=== PATIENT | male | born 1955 | race African-American/Black ===

== ENCOUNTER 2018-03-20 16:41 | Emergency (ER) | payer OTHER ==
[~2018-03-20] VITALS: Ht 185.4 cm; Wt 107.7 kg
[2018-03-20 18:17] VITALS: BP 145/88
== END 2018-03-20 19:18 | disposition home or self-care (01) ==
LOC: EDUNIT# 16:41 → EMS 16:42
DX: R60.0 Localized edema (principal); M79.89 Other specified soft tissue disorders; G89.29 Other chronic pain; S91.302D Unspecified open wound, left foot, subsequent encounter; S91.301D Unspecified open wound, right foot, subsequent encounter; Z88.8 Allergy status to other drugs, medicaments and biological substances; X58.XXXD Exposure to other specified factors, subsequent encounter
CPT/HCPCS: 99283

== ENCOUNTER → 2018-03-25 | Outpatient (CLI) | payer OTHER ==
[~2018-03-25] VITALS: Ht 185.4 cm; Wt 103.3 kg
[~2018-03-25] MED LIST: CHLORHEXIDINE GLUCONATE 4% 118 ML TOPICAL LIQUID TP ONE; HYDROGEN PEROXIDE 473 ML SOLUTION TP ONE; LIDOCAINE HCL 4% 50 ML SOLUTION TP ONE; SODIUM HYPOCHLORITE 0.25% [HALF STRENGTH] 473 ML SOLUTION TP ONE
[2018-03-25 13:54] VITALS: BP 156/93
== END | disposition home or self-care (01) ==
LOC: EDUNIT# 11:00 → HBOWC 11:24
PROVIDERS: ATTEND Emergency Medicine
DX: S81.801D Unspecified open wound, right lower leg, subsequent encounter (principal); S81.802D Unspecified open wound, left lower leg, subsequent encounter; G89.29 Other chronic pain; I87.8 Other specified disorders of veins; F17.210 Nicotine dependence, cigarettes, uncomplicated; Z59.0 Homelessness; X58.XXXD Exposure to other specified factors, subsequent encounter
CPT/HCPCS: 11042; 11045

== ENCOUNTER → 2018-03-28 | Outpatient (CLI) | payer OTHER ==
[2018-03-28 11:07] VITALS: BP 146/88
== END | disposition home or self-care (01) ==
LOC: HBOWC 09:41
PROVIDERS: ATTEND Podiatrist
DX: S81.801D Unspecified open wound, right lower leg, subsequent encounter (principal); S81.802D Unspecified open wound, left lower leg, subsequent encounter; G89.29 Other chronic pain; F17.210 Nicotine dependence, cigarettes, uncomplicated; X58.XXXD Exposure to other specified factors, subsequent encounter

== ENCOUNTER 2018-04-01 12:11 | Emergency (ER) | payer OTHER ==
[~2018-04-01] VITALS: Ht 165.1 cm; Wt 109.0 kg
[2018-04-01 17:06] LABS: BASOPHILS % (AUTO) 0.9 % (0.0-2.0); HEMATOCRIT 36.6 % (41-53); HEMOGLOBIN 12.4 g/dL (13.5-17.5); LYMPHOCYTES # (AUTO) 1.3 K/uL (1.0-4.8); LYMPHOCYTES % (AUTO) 20.9 % (22.0-44.0); MEAN CORPUSCULAR HEMOGLOBIN 27.1 pg (26.0-34.0); MEAN CORPUSCULAR HGB CONC 33.7 G/dL (31.0-37.0); MEAN CORPUSCULAR VOLUME 80 fL (80-100); MONOCYTES # (AUTO) 0.5 K/uL (0.1-1.0); MONOCYTES % (AUTO) 7.6 % (2.0-9.0); NEUTROPHILS # (AUTO) 3.9 K/uL (1.8-7.7); NEUTROPHILS % (AUTO) 63.6 % (40.0-70.0); PLATELET COUNT (AUTO) 416 K/uL (150-450); RED BLOOD CELL COUNT(AUTO) 4.57 MIL/uL (4.50-5.90); RED CELL DISTRIBUTION WIDTH 14.7 % (11.5-14.5)
[2018-04-01 17:23] LABS: ANION GAP 5 mmol/L (8-16); CALCIUM, TOTAL 8.2 mg/dL (8.8-10.5); CARBON DIOXIDE 30 mmol/L (22-29); CHLORIDE 105 mmol/L (98-107); CREATININE 1.24 mg/dL (0.60-1.30); GLOMERULAR FILTR. RATE CALC > 60 mL/min (>60); GLUCOSE,RANDOM 128 mg/dL (70-110); POTASSIUM 3.8 mmol/L (3.5-5.1); SODIUM SERUM 140 mmol/L (136-145); UREA NITROGEN, BLOOD 15 mg/dL (7-18)
[2018-04-01 17:28] LABS: LACTIC ACID 1.8 mmol/L (0.4-2.0)
[2018-04-01 17:34] LABS: ALANINE AMINOTRANSFERASE 18 U/L (12-78); ALBUMIN 2.4 g/dL (3.4-5.0); ALKALINE PHOSPHATASE 101 U/L (46-116); ASPARTATE AMINOTRANSFERASE 18 U/L (15-37); BILIRUBIN,TOTAL 0.4 mg/dL (0.1-1.0); TOTAL PROTEIN, SERUM 7.7 g/dL (6.4-8.2)
[2018-04-01 19:51] VITALS: BP 139/88
== END 2018-04-01 19:53 | disposition home or self-care (01) ==
LOC: EMS 12:12
DX: Z48.00 Encounter for change or removal of nonsurgical wound dressing (principal)
CPT/HCPCS: 83605; 99284

== ENCOUNTER 2018-04-02 12:15 | Inpatient (IN) | payer OTHER ==
[~2018-04-02] VITALS: Ht 185.4 cm; Wt 93.3 kg
[2018-04-02] MEDS ORDERED: CeFAZolin 1 GM/DEXTROSE 50 ML IV ONE (12:30)
[2018-04-02] MEDS ORDERED: GENTAMICIN 120 MG/NACL ISO-OSM 100 ML IV ONE (12:30)
[2018-04-02] MEDS ORDERED: ONDANSETRON HCL 4 MG/2 ML VIAL IVP PRN ×2 (13:30→22:30)
[2018-04-02] MEDS ORDERED: HYDROCODONE/ACETAMINOPHEN 5-325 MG TABLET PO PRN (13:30)
[2018-04-02] MEDS ORDERED: ACETAMINOPHEN 325 MG TABLET PO PRN ×2 (13:30→22:30)
[2018-04-02] MEDS ORDERED: MORPHINE SULFATE 4 MG/ML SYRINGE IVP PRN (13:30)
[2018-04-02 13:43] LABS: BASOPHILS % (AUTO) 0.5 % (0.0-2.0); EOSINOPHILS % (AUTO) 5.2 % (1.0-6.0); HEMATOCRIT 36.5 % (41-53); HEMOGLOBIN 12.3 g/dL (13.5-17.5); LYMPHOCYTES # (AUTO) 1.2 K/uL (1.0-4.8); LYMPHOCYTES % (AUTO) 14.7 % (22.0-44.0); MEAN CORPUSCULAR HEMOGLOBIN 27.2 pg (26.0-34.0); MEAN CORPUSCULAR HGB CONC 33.8 G/dL (31.0-37.0); MEAN CORPUSCULAR VOLUME 80 fL (80-100); MONOCYTES # (AUTO) 0.6 K/uL (0.1-1.0); MONOCYTES % (AUTO) 7.6 % (2.0-9.0); PLATELET COUNT (AUTO) 407 K/uL (150-450); RED BLOOD CELL COUNT(AUTO) 4.54 MIL/uL (4.50-5.90); RED CELL DISTRIBUTION WIDTH 14.6 % (11.5-14.5)
[2018-04-02 13:52] LABS: ANION GAP 4 mmol/L (8-16); CARBON DIOXIDE 29 mmol/L (22-29); CHLORIDE 104 mmol/L (98-107); CREATININE 1.13 mg/dL (0.60-1.30); GLOMERULAR FILTR. RATE CALC > 60 mL/min (>60); GLUCOSE,RANDOM 91 mg/dL (70-110); SODIUM SERUM 137 mmol/L (136-145); UREA NITROGEN, BLOOD 15 mg/dL (7-18)
[2018-04-02 14:00] LABS: ALANINE AMINOTRANSFERASE 18 U/L (12-78); ALBUMIN 2.4 g/dL (3.4-5.0); ALKALINE PHOSPHATASE 98 U/L (46-116); ASPARTATE AMINOTRANSFERASE 20 U/L (15-37); BILIRUBIN,TOTAL 0.2 mg/dL (0.1-1.0); TOTAL PROTEIN, SERUM 7.7 g/dL (6.4-8.2)
[2018-04-02 15:24] VITALS: BP 155/101
[2018-04-02 19:31] VITALS: BP 126/59
[2018-04-02] MEDS ORDERED: 0.9% SODIUM CHLORIDE 10 ML SYRINGE IVP PRN (22:30)
[2018-04-02] MEDS ORDERED: ZOLPIDEM TARTRATE 5 MG TABLET PO PRN (22:30)
[2018-04-02] MEDS ORDERED: VANCOMYCIN HCL 1.5 GM in DEXTROSE 5%-WATER 250 ML IV ONE (23:30)
[2018-04-02 23:36] VITALS: BP 126/72
[2018-04-02] MEDS: OxyCODONE HCL/ACETAMINOPHEN 5-325 MG TABLET PO PRN (23:57)
[2018-04-03] MEDS ORDERED: HEPARIN SODIUM,PORCINE 5,000 UNITS/ML VIAL SQ SCH
[2018-04-03] MEDS: CefTRIAXone SODIUM 1 GM in DEXTROSE 5%-WATER 10 ML IV SCH ×2 (00:17→23:33)
[2018-04-03] MEDS ORDERED: SODIUM CHLORIDE 0.9% 250 ML IV ONE ×2 (00:54→08:42)
[2018-04-03 04:53] VITALS: BP 142/75
[2018-04-03 07:48] LABS: BASOPHILS % (AUTO) 0.2 % (0.0-2.0); EOSINOPHILS % (AUTO) 4.2 % (1.0-6.0); HEMATOCRIT 38.9 % (41-53); HEMOGLOBIN 12.8 g/dL (13.5-17.5); LYMPHOCYTES # (AUTO) 1.3 K/uL (1.0-4.8); LYMPHOCYTES % (AUTO) 15.1 % (22.0-44.0); MEAN CORPUSCULAR HEMOGLOBIN 26.7 pg (26.0-34.0); MEAN CORPUSCULAR HGB CONC 32.8 G/dL (31.0-37.0); MEAN CORPUSCULAR VOLUME 81 fL (80-100); MONOCYTES # (AUTO) 0.6 K/uL (0.1-1.0); MONOCYTES % (AUTO) 7.2 % (2.0-9.0); NEUTROPHILS # (AUTO) 6.2 K/uL (1.8-7.7); NEUTROPHILS % (AUTO) 73.3 % (40.0-70.0); PLATELET COUNT (AUTO) 417 K/uL (150-450); RED BLOOD CELL COUNT(AUTO) 4.77 MIL/uL (4.50-5.90); RED CELL DISTRIBUTION WIDTH 14.7 % (11.5-14.5)
[2018-04-03 07:53] VITALS: BP 141/65
[2018-04-03] MEDS: VANCOMYCIN HCL 1.25 GM in DEXTROSE 5%-WATER 250 ML IV SCH ×2 (08:00→20:16)
[2018-04-03 08:02] LABS: ANION GAP 3 mmol/L (8-16); CALCIUM, TOTAL 7.9 mg/dL (8.8-10.5); CARBON DIOXIDE 30 mmol/L (22-29); CHLORIDE 103 mmol/L (98-107); CREATININE 1.06 mg/dL (0.60-1.30); GLOMERULAR FILTR. RATE CALC > 60 mL/min (>60); GLUCOSE,RANDOM 87 mg/dL (70-110); POTASSIUM 3.8 mmol/L (3.5-5.1); SODIUM SERUM 136 mmol/L (136-145); UREA NITROGEN, BLOOD 14 mg/dL (7-18)
[2018-04-03] MEDS: DOCUSATE SODIUM 100 MG CAPSULE PO SCH ×2 (09:00→20:16)
[2018-04-03] MEDS: PANTOPRAZOLE SODIUM 40 MG DR TABLET PO SCH (09:00)
[2018-04-03 12:20] VITALS: BP 136/58
[2018-04-03 16:10] VITALS: BP 133/76
[2018-04-03 19:20] VITALS: BP 121/92
[2018-04-03] MEDS: OxyCODONE HCL/ACETAMINOPHEN 5-325 MG TABLET PO PRN (20:22)
[2018-04-03 23:13] VITALS: BP 138/85
[2018-04-04 04:55] VITALS: BP 126/66
[2018-04-04] MEDS: OxyCODONE HCL/ACETAMINOPHEN 5-325 MG TABLET PO PRN ×4 (05:15→22:14)
[2018-04-04 07:14] LABS: ANION GAP 3 mmol/L (8-16); CALCIUM, TOTAL 7.8 mg/dL (8.8-10.5); CARBON DIOXIDE 30 mmol/L (22-29); CHLORIDE 103 mmol/L (98-107); CREATININE 1.11 mg/dL (0.60-1.30); GLOMERULAR FILTR. RATE CALC > 60 mL/min (>60); GLUCOSE,RANDOM 102 mg/dL (70-110); SODIUM SERUM 136 mmol/L (136-145); UREA NITROGEN, BLOOD 14 mg/dL (7-18); VANCOMYCIN,RANDOM 16.7 mcg/mL (25.0-50.0)
[2018-04-04 07:59] VITALS: BP 146/81
[2018-04-04] MEDS: VANCOMYCIN HCL 1.25 GM in DEXTROSE 5%-WATER 250 ML IV SCH ×2 (08:00→22:10)
[2018-04-04] MEDS ORDERED: ZINC OXIDE 20% 30 GM OINTMENT TP SCH (09:00)
[2018-04-04] MEDS: DOCUSATE SODIUM 100 MG CAPSULE PO SCH ×2 (09:39→20:06)
[2018-04-04] MEDS: PANTOPRAZOLE SODIUM 40 MG DR TABLET PO SCH (09:39)
[2018-04-04] MEDS: ACETIC ACID 0.25% 1000 ML IRRIGATION SOLUTION IRRIG SCH (09:39)
[2018-04-04 11:15] VITALS: BP 150/63
[2018-04-04] MEDS ORDERED: INSULIN GLARGINE,HUM.REC.ANLOG 100 UNITS/ML SQ ONE (13:00)
[2018-04-04 16:21] VITALS: BP 134/74
[2018-04-04] MEDS ORDERED: MULTIVITAMINS, THERAPEUTIC TABLET PO ONE (17:15)
[2018-04-04 19:11] VITALS: BP 149/90
[2018-04-04] MEDS: FLUCONAZOLE 200 MG/NACL ISOOSM 100 ML IV SCH (20:06)
[2018-04-04] MEDS ORDERED: INSULIN GLARGINE,HUM.REC.ANLOG 100 UNITS/ML SQ SCH (21:00)
[2018-04-04] MEDS: CefTRIAXone SODIUM 1 GM in DEXTROSE 5%-WATER 10 ML IV SCH (22:16)
[2018-04-04 23:55] VITALS: BP 140/81
[2018-04-05] MEDS: OxyCODONE HCL/ACETAMINOPHEN 5-325 MG TABLET PO PRN ×3 (02:57→19:52)
[2018-04-05 05:48] VITALS: BP 143/81
[2018-04-05 06:36] LABS: ANION GAP 5 mmol/L (8-16); CALCIUM, TOTAL 7.9 mg/dL (8.8-10.5); CARBON DIOXIDE 29 mmol/L (22-29); CHLORIDE 103 mmol/L (98-107); GLOMERULAR FILTR. RATE CALC > 60 mL/min (>60); GLUCOSE,RANDOM 116 mg/dL (70-110); POTASSIUM 3.6 mmol/L (3.5-5.1); SODIUM SERUM 137 mmol/L (136-145); UREA NITROGEN, BLOOD 13 mg/dL (7-18)
[2018-04-05 07:56] VITALS: BP 140/82
[2018-04-05] MEDS: VANCOMYCIN HCL 1.25 GM in DEXTROSE 5%-WATER 250 ML IV SCH ×2 (09:18→19:49)
[2018-04-05] MEDS: PANTOPRAZOLE SODIUM 40 MG DR TABLET PO SCH (09:19)
[2018-04-05] MEDS: DOCUSATE SODIUM 100 MG CAPSULE PO SCH ×2 (09:19→19:53)
[2018-04-05] MEDS: ASCORBIC ACID 500 MG TABLET PO SCH (09:19)
[2018-04-05] MEDS: ZINC SULFATE 220 MG CAPSULE PO SCH (09:19)
[2018-04-05 11:32] VITALS: BP 133/89
[2018-04-05] MEDS: ACETIC ACID 0.25% 1000 ML IRRIGATION SOLUTION IRRIG SCH (12:00)
[2018-04-05 15:54] VITALS: BP 138/86
[2018-04-05 20:00] VITALS: BP 149/86
[2018-04-05] MEDS: FLUCONAZOLE 200 MG/NACL ISOOSM 100 ML IV SCH (22:28)
[2018-04-06] VITALS (7 sets, daily range): BP systolic 126–157; BP diastolic 79–98
[2018-04-06] MEDS: CefTRIAXone SODIUM 1 GM in DEXTROSE 5%-WATER 10 ML IV SCH (00:07)
[2018-04-06] MEDS: OxyCODONE HCL/ACETAMINOPHEN 5-325 MG TABLET PO PRN ×3 (00:13→15:54)
[2018-04-06] MEDS: DOCUSATE SODIUM 100 MG CAPSULE PO SCH ×2 (09:00→20:55)
[2018-04-06] MEDS: VANCOMYCIN HCL 1.25 GM in DEXTROSE 5%-WATER 250 ML IV SCH ×2 (09:20→20:54)
[2018-04-06] MEDS: ZINC SULFATE 220 MG CAPSULE PO SCH (09:20)
[2018-04-06] MEDS: PANTOPRAZOLE SODIUM 40 MG DR TABLET PO SCH (09:20)
[2018-04-06] MEDS: ASCORBIC ACID 500 MG TABLET PO SCH (09:20)
[2018-04-06 10:50] LABS: ANION GAP 2 mmol/L (8-16); CALCIUM, TOTAL 8.2 mg/dL (8.8-10.5); CARBON DIOXIDE 33 mmol/L (22-29); CHLORIDE 101 mmol/L (98-107); CREATININE 1.02 mg/dL (0.60-1.30); GLOMERULAR FILTR. RATE CALC > 60 mL/min (>60); GLUCOSE,RANDOM 87 mg/dL (70-110); POTASSIUM 4.1 mmol/L (3.5-5.1); SODIUM SERUM 136 mmol/L (136-145); UREA NITROGEN, BLOOD 15 mg/dL (7-18)
[2018-04-06] MEDS: ACETIC ACID 0.25% 1000 ML IRRIGATION SOLUTION IRRIG SCH (14:08)
[2018-04-06] MEDS: FLUCONAZOLE 200 MG/NACL ISOOSM 100 ML IV SCH (20:55)
[2018-04-07] MEDS ORDERED: SODIUM CHLORIDE 0.9% 250 ML IV ONE (00:06)
[2018-04-07] MEDS: CefTRIAXone SODIUM 1 GM in DEXTROSE 5%-WATER 10 ML IV SCH ×2 (00:50→22:58)
[2018-04-07] MEDS: OxyCODONE HCL/ACETAMINOPHEN 5-325 MG TABLET PO PRN ×3 (00:53→19:47)
[2018-04-07 04:50] VITALS: BP 125/85
[2018-04-07 07:34] VITALS: BP 130/97
[2018-04-07 07:45] LABS: ANION GAP 6 mmol/L (8-16); CALCIUM, TOTAL 8.2 mg/dL (8.8-10.5); CARBON DIOXIDE 29 mmol/L (22-29); CHLORIDE 103 mmol/L (98-107); CREATININE 1.07 mg/dL (0.60-1.30); GLOMERULAR FILTR. RATE CALC > 60 mL/min (>60); GLUCOSE,RANDOM 100 mg/dL (70-110); POTASSIUM 3.8 mmol/L (3.5-5.1); SODIUM SERUM 138 mmol/L (136-145); UREA NITROGEN, BLOOD 19 mg/dL (7-18)
[2018-04-07] MEDS: ZINC SULFATE 220 MG CAPSULE PO SCH (07:50)
[2018-04-07] MEDS: VANCOMYCIN HCL 1.25 GM in DEXTROSE 5%-WATER 250 ML IV SCH ×2 (07:51→20:11)
[2018-04-07] MEDS: PANTOPRAZOLE SODIUM 40 MG DR TABLET PO SCH (07:51)
[2018-04-07] MEDS: ASCORBIC ACID 500 MG TABLET PO SCH (07:51)
[2018-04-07] MEDS: DOCUSATE SODIUM 100 MG CAPSULE PO SCH ×2 (07:56→19:49)
[2018-04-07 11:33] VITALS: BP 134/77
[2018-04-07] MEDS: ZINC OXIDE 16% PASTE 57 GM TUBE TP SCH (15:03)
[2018-04-07] MEDS: ACETIC ACID 0.25% 1000 ML IRRIGATION SOLUTION IRRIG SCH (15:03)
[2018-04-07 19:49] VITALS: BP 124/64
[2018-04-07] MEDS: FLUCONAZOLE 200 MG/NACL ISOOSM 100 ML IV SCH (23:05)
[2018-04-07 23:30] VITALS: BP 128/68
[2018-04-08] MEDS: OxyCODONE HCL/ACETAMINOPHEN 5-325 MG TABLET PO PRN ×2 (00:17→20:01)
[2018-04-08 04:47] VITALS: BP 142/89
[2018-04-08 06:04] LABS: BASOPHILS % (AUTO) 0.7 % (0.0-2.0); EOSINOPHILS % (AUTO) 4.6 % (1.0-6.0); HEMATOCRIT 38.7 % (41-53); HEMOGLOBIN 13.1 g/dL (13.5-17.5); LYMPHOCYTES # (AUTO) 1.8 K/uL (1.0-4.8); LYMPHOCYTES % (AUTO) 28.5 % (22.0-44.0); MEAN CORPUSCULAR HEMOGLOBIN 27.1 pg (26.0-34.0); MEAN CORPUSCULAR VOLUME 80 fL (80-100); MONOCYTES # (AUTO) 0.4 K/uL (0.1-1.0); MONOCYTES % (AUTO) 5.7 % (2.0-9.0); NEUTROPHILS # (AUTO) 3.8 K/uL (1.8-7.7); NEUTROPHILS % (AUTO) 60.5 % (40.0-70.0); PLATELET COUNT (AUTO) 486 K/uL (150-450); RED BLOOD CELL COUNT(AUTO) 4.86 MIL/uL (4.50-5.90); RED CELL DISTRIBUTION WIDTH 14.3 % (11.5-14.5)
[2018-04-08 06:29] LABS: ALANINE AMINOTRANSFERASE 17 U/L (12-78); ALBUMIN 2.5 g/dL (3.4-5.0); ALKALINE PHOSPHATASE 85 U/L (46-116); ANION GAP 5 mmol/L (8-16); ASPARTATE AMINOTRANSFERASE 15 U/L (15-37); BILIRUBIN,TOTAL 0.1 mg/dL (0.1-1.0); CALCIUM, TOTAL 8.3 mg/dL (8.8-10.5); CARBON DIOXIDE 30 mmol/L (22-29); CHLORIDE 100 mmol/L (98-107); CREATININE 1.07 mg/dL (0.60-1.30); GLOMERULAR FILTR. RATE CALC > 60 mL/min (>60); GLUCOSE,RANDOM 87 mg/dL (70-110); POTASSIUM 3.6 mmol/L (3.5-5.1); SODIUM SERUM 135 mmol/L (136-145); TOTAL PROTEIN, SERUM 7.7 g/dL (6.4-8.2); UREA NITROGEN, BLOOD 20 mg/dL (7-18); VANCOMYCIN,RANDOM 20.2 mcg/mL (25.0-50.0)
[2018-04-08 07:45] VITALS: BP 140/90
[2018-04-08] MEDS: ZINC OXIDE 16% PASTE 57 GM TUBE TP SCH (09:00)
[2018-04-08] MEDS: ACETIC ACID 0.25% 1000 ML IRRIGATION SOLUTION IRRIG SCH (09:00)
[2018-04-08] MEDS ORDERED: SODIUM CHLORIDE 0.9% 250 ML IV ONE (09:34)
[2018-04-08] MEDS: ZINC SULFATE 220 MG CAPSULE PO SCH (09:41)
[2018-04-08] MEDS: DOCUSATE SODIUM 100 MG CAPSULE PO SCH ×2 (09:41→19:56)
[2018-04-08] MEDS: PANTOPRAZOLE SODIUM 40 MG DR TABLET PO SCH (09:41)
[2018-04-08] MEDS: ASCORBIC ACID 500 MG TABLET PO SCH (09:41)
[2018-04-08] MEDS: VANCOMYCIN HCL 1.25 GM in DEXTROSE 5%-WATER 250 ML IV SCH (09:42)
[2018-04-08 11:53] VITALS: BP 143/89
[2018-04-08 16:27] VITALS: BP 144/87
[2018-04-08 19:27] VITALS: BP 137/79
[2018-04-08] MEDS: VANCOMYCIN HCL 1.5 GM in DEXTROSE 5%-WATER 250 ML IV SCH (20:01)
[2018-04-08] MEDS: FLUCONAZOLE 200 MG/NACL ISOOSM 100 ML IV SCH (21:32)
[2018-04-09] VITALS (7 sets, daily range): BP systolic 125–154; BP diastolic 66–106
[2018-04-09] MEDS: CIPROFLOXACIN HCL 500 MG TABLET PO SCH ×3 (00:48→20:01)
[2018-04-09] MEDS: OxyCODONE HCL/ACETAMINOPHEN 5-325 MG TABLET PO PRN ×4 (01:03→20:09)
[2018-04-09 06:48] LABS: ANION GAP 5 mmol/L (8-16); CALCIUM, TOTAL 8.5 mg/dL (8.8-10.5); CARBON DIOXIDE 31 mmol/L (22-29); CHLORIDE 100 mmol/L (98-107); CREATININE 1.11 mg/dL (0.60-1.30); GLOMERULAR FILTR. RATE CALC > 60 mL/min (>60); GLUCOSE,RANDOM 76 mg/dL (70-110); POTASSIUM 3.5 mmol/L (3.5-5.1); SODIUM SERUM 136 mmol/L (136-145); UREA NITROGEN, BLOOD 17 mg/dL (7-18)
[2018-04-09] MEDS: ZINC OXIDE 16% PASTE 57 GM TUBE TP SCH (09:00)
[2018-04-09] MEDS: DOCUSATE SODIUM 100 MG CAPSULE PO SCH ×2 (09:00→20:01)
[2018-04-09] MEDS: ACETIC ACID 0.25% 1000 ML IRRIGATION SOLUTION IRRIG SCH (09:00)
[2018-04-09] MEDS: ASCORBIC ACID 500 MG TABLET PO SCH (09:40)
[2018-04-09] MEDS: PANTOPRAZOLE SODIUM 40 MG DR TABLET PO SCH (09:40)
[2018-04-09] MEDS: ZINC SULFATE 220 MG CAPSULE PO SCH (09:40)
[2018-04-09] MEDS: VANCOMYCIN HCL 1.5 GM in DEXTROSE 5%-WATER 250 ML IV SCH ×2 (09:41→20:01)
[2018-04-10 05:18] VITALS: BP 153/77
[2018-04-10] MEDS: VANCOMYCIN HCL 1.5 GM in DEXTROSE 5%-WATER 250 ML IV SCH ×2 (08:00→09:17)
[2018-04-10 08:56] VITALS: BP 140/75
[2018-04-10] MEDS: ACETIC ACID 0.25% 1000 ML IRRIGATION SOLUTION IRRIG SCH (09:00)
[2018-04-10] MEDS: PANTOPRAZOLE SODIUM 40 MG DR TABLET PO SCH (09:17)
[2018-04-10] MEDS: DOCUSATE SODIUM 100 MG CAPSULE PO SCH (09:17)
[2018-04-10] MEDS: CIPROFLOXACIN HCL 500 MG TABLET PO SCH (09:17)
[2018-04-10] MEDS: ZINC SULFATE 220 MG CAPSULE PO SCH (09:17)
[2018-04-10] MEDS: ZINC OXIDE 16% PASTE 57 GM TUBE TP SCH (09:18)
[2018-04-10] MEDS: ASCORBIC ACID 500 MG TABLET PO SCH (09:18)
[2018-04-10] MEDS: OxyCODONE HCL/ACETAMINOPHEN 5-325 MG TABLET PO PRN (16:13)
== END 2018-04-10 17:15 | disposition left against medical advice (07) | DRG 383 ==
LOC: EMS 12:15 → 6N 12:45
PROVIDERS: ADMIT Hospitalist; ATTEND Hospitalist
DX: L03.115 Cellulitis of right lower limb (principal); L97.819 Non-pressure chronic ulcer of other part of right lower leg with unspecified severity; L97.829 Non-pressure chronic ulcer of other part of left lower leg with unspecified severity; L03.116 Cellulitis of left lower limb; F17.210 Nicotine dependence, cigarettes, uncomplicated; I87.2 Venous insufficiency (chronic) (peripheral); B95.62 Methicillin resistant Staphylococcus aureus infection as the cause of diseases classified elsewhere; Z53.21 Procedure and treatment not carried out due to patient leaving prior to being seen by health care provider; Z59.0 Homelessness; Z88.8 Allergy status to other drugs, medicaments and biological substances; Z86.14 Personal history of Methicillin resistant Staphylococcus aureus infection
CPT/HCPCS: 83735; 87070; 87081; 87205; 93925; 93970; 96365; 96368; 99285; J0690; J0696; J1450; J1580; J1644; J2270; J3370; J7050; J7060

== ENCOUNTER → 2018-04-02 | Outpatient (CLI) | payer OTHER ==
[2018-04-02 14:21] VITALS: BP 156/90
== END | disposition home or self-care (01) ==
LOC: HBOWC 08:59
PROVIDERS: ATTEND Internal Medicine
DX: S81.801D Unspecified open wound, right lower leg, subsequent encounter (principal); S81.802D Unspecified open wound, left lower leg, subsequent encounter; G89.29 Other chronic pain; F17.210 Nicotine dependence, cigarettes, uncomplicated; X58.XXXD Exposure to other specified factors, subsequent encounter
CPT/HCPCS: 11042

== ENCOUNTER → 2018-12-15 | Outpatient (CLI) | payer OTHER ==
[~2018-12-15] VITALS: Ht 188 cm; Wt 105.0 kg
[~2018-12-15] MED LIST changes: +ACET-784 PO; +AMLO-512 PO; +BISA10S PR; -CHLORHEXIDINE GLUCONATE 4% 118 ML TOPICAL LIQUID TP ONE; +GABA-531 PO; -HYDROGEN PEROXIDE 473 ML SOLUTION TP ONE; -LIDOCAINE HCL 4% 50 ML SOLUTION TP ONE; +MINE50OI TP; +PERCT PO; -SODIUM HYPOCHLORITE 0.25% [HALF STRENGTH] 473 ML SOLUTION TP ONE; +UREA198C TP
[2018-12-15 08:10] VITALS: BP 137/80
== END | disposition home or self-care (01) ==
LOC: HBOWC 07:54
PROVIDERS: ATTEND Surgery Plastic and Reconstructive Surgery
DX: S81.802D Unspecified open wound, left lower leg, subsequent encounter (principal); S81.801D Unspecified open wound, right lower leg, subsequent encounter; I89.0 Lymphedema, not elsewhere classified; I87.2 Venous insufficiency (chronic) (peripheral); I10 Essential (primary) hypertension; F17.210 Nicotine dependence, cigarettes, uncomplicated; Z72.89 Other problems related to lifestyle; Z59.0 Homelessness; X58.XXXD Exposure to other specified factors, subsequent encounter

== ENCOUNTER 2019-07-21 22:50 | Inpatient (IN) | payer OTHER ==
[~2019-07-21] VITALS: Ht 185.4 cm; Wt 98.1 kg
[~2019-07-21 22:50] MED LIST changes: -AMLO-512 PO; +AMLO10TA7 PO
[2019-07-22] MEDS ORDERED: CHOL200059 PO (00:13)
[2019-07-22] MEDS ORDERED: CLOT12CR TP (00:13)
[2019-07-22] MEDS ORDERED: OLAN5TAB2 PO (00:13)
[2019-07-22] MEDS ORDERED: GABA-533 PO (00:13)
[2019-07-22] MEDS ORDERED: SENN-31 PO (00:13)
[2019-07-22] MEDS ORDERED: DIME532L3 TP (00:13)
[2019-07-22] MEDS ORDERED: FAMO20 PO (00:13)
[2019-07-22 03:08] LABS: BASOPHILS % (AUTO) 0.9 % (0.0-2.0); HEMOGLOBIN 10.9 g/dL (13.5-17.5); LYMPHOCYTES # (AUTO) 1.4 K/uL (1.0-4.8); LYMPHOCYTES % (AUTO) 25.5 % (22.0-44.0); MEAN CORPUSCULAR HEMOGLOBIN 27.3 pg (26.0-34.0); MEAN CORPUSCULAR HGB CONC 32.9 G/dL (31.0-37.0); MEAN CORPUSCULAR VOLUME 83 fL (80-100); MONOCYTES # (AUTO) 0.3 K/uL (0.1-1.0); MONOCYTES % (AUTO) 6.2 % (2.0-9.0); NEUTROPHILS # (AUTO) 3.5 K/uL (1.8-7.7); NEUTROPHILS % (AUTO) 64.4 % (40.0-70.0); PLATELET COUNT (AUTO) 291 K/uL (150-450); RED BLOOD CELL COUNT(AUTO) 3.98 MIL/uL (4.50-5.90); RED CELL DISTRIBUTION WIDTH 16.2 % (11.5-14.5)
[2019-07-22 03:11] LABS: ANION GAP 6 mmol/L (8-16); CALCIUM, TOTAL 8.1 mg/dL (8.8-10.5); CARBON DIOXIDE 27 mmol/L (22-29); CHLORIDE 107 mmol/L (98-107); CREATININE 0.99 mg/dL (0.60-1.30); GLOMERULAR FILTR. RATE CALC > 60 mL/min (>60); GLUCOSE,RANDOM 105 mg/dL (70-110); POTASSIUM 4.1 mmol/L (3.5-5.1); SODIUM SERUM 140 mmol/L (136-145); UREA NITROGEN, BLOOD 24 mg/dL (7-18)
[2019-07-22 03:17] LABS: ALANINE AMINOTRANSFERASE 14 U/L (12-78); ALBUMIN 2.4 g/dL (3.4-5.0); ALKALINE PHOSPHATASE 101 U/L (46-116); ASPARTATE AMINOTRANSFERASE 14 U/L (15-37); BILIRUBIN,TOTAL 0.2 mg/dL (0.1-1.0); TOTAL PROTEIN, SERUM 6.4 g/dL (6.4-8.2)
[2019-07-22] MEDS ORDERED: 0.9% SODIUM CHLORIDE 10 ML SYRINGE IVP PRN (03:30)
[2019-07-22] MEDS ORDERED: ONDANSETRON HCL 4 MG/2 ML VIAL IVP PRN ×2 (03:30→07:00)
[2019-07-22] MEDS ORDERED: ACETAMINOPHEN 325 MG TABLET PO PRN ×2 (03:30→07:00)
[2019-07-22 04:47] VITALS: BP 143/84
[2019-07-22 07:00] LABS: AMPHET/METH SCREEN,URINE POSITIVE (NEGATIVE); BARBITURATE SCREEN, URINE NEGATIVE (NEGATIVE); BENZODIAZEPINES SCREEN,URINE NEGATIVE (NEGATIVE); CANNABINOID SCREEN,URINE NEGATIVE (NEGATIVE); COCAINE SCREEN,URINE NEGATIVE (NEGATIVE); METHADONE SCREEN, URINE NEGATIVE (NEGATIVE); OPIATE SCREEN,URINE POSITIVE (NEGATIVE); PHENCYCLIDINE SCREEN,URINE NEGATIVE (NEGATIVE)
[2019-07-22] MEDS ORDERED: MORPHINE SULFATE 2 MG/ML SYRINGE IVP PRN (07:00)
[2019-07-22] MEDS ORDERED: BISACODYL 10 MG RECTAL RECTAL SUPPOSITORY PR PRN (07:00)
[2019-07-22] MEDS ORDERED: OLANZapine 5 MG TABLET PO PRN (07:00)
[2019-07-22] MEDS ORDERED: ZOLPIDEM TARTRATE 5 MG TABLET PO PRN (07:00)
[2019-07-22] MEDS ORDERED: MAGNESIUM HYDROXIDE SUSPENSION 30 ML UDCUP PO PRN (07:00)
[2019-07-22] MEDS ORDERED: VANCOMYCIN HCL 1.25 GM in DEXTROSE 5%-WATER 250 ML IV ONE (07:15)
[2019-07-22 07:35] VITALS: BP 131/70
[2019-07-22] MEDS: GABAPENTIN 400 MG CAPSULE PO SCH ×2 (08:58→15:27)
[2019-07-22] MEDS ORDERED: DOCUSATE SODIUM 100 MG CAPSULE PO SCH (09:00)
[2019-07-22] MEDS ORDERED: PANTOPRAZOLE SODIUM 40 MG DR TABLET PO SCH (09:00)
[2019-07-22] MEDS ORDERED: CHOLECALCIFEROL (VIT D3) 2,000 UNITS TABLET PO SCH (09:00)
[2019-07-22] MEDS ORDERED: SODIUM CHLORIDE 0.9% 500 ML IV ONE (09:01)
[2019-07-22] MEDS: HYDROCODONE/ACETAMINOPHEN 5-325 MG TABLET PO PRN ×2 (09:02→15:31)
[2019-07-22 11:27] VITALS: BP 128/74
[2019-07-22 15:29] VITALS: BP 137/77
[2019-07-22] MEDS ORDERED: VANCOMYCIN HCL 1.25 GM in DEXTROSE 5%-WATER 250 ML IV SCH (19:00)
== END 2019-07-22 17:10 | DRG 207 ==
LOC: EMS 22:51 → 4E 07-22 02:00
PROVIDERS: ADMIT Internal Medicine; ATTEND Internal Medicine
DX: I87.8 Other specified disorders of veins (principal); E55.9 Vitamin D deficiency, unspecified; I87.2 Venous insufficiency (chronic) (peripheral); T69.029A Immersion foot, unspecified foot, initial encounter; X58.XXXA Exposure to other specified factors, initial encounter; Z91.19 Patient's noncompliance with other medical treatment and regimen; Z59.0 Homelessness; Z86.14 Personal history of Methicillin resistant Staphylococcus aureus infection; Z99.3 Dependence on wheelchair; Y93.89 Activity, other specified; Y92.89 Other specified places as the place of occurrence of the external cause; Y99.8 Other external cause status; Z88.8 Allergy status to other drugs, medicaments and biological substances; Z79.899 Other long term (current) drug therapy
CPT/HCPCS: 80307; 87070; 87081; 87205; G0378; G0480; J3370; J7040; J7060

== ENCOUNTER 2022-12-02 19:22 | Emergency (ER) | payer OTHER ==
[~2022-12-02] VITALS: Ht 180.3 cm; Wt 113.0 kg
[~2022-12-02 19:22] MED LIST changes: -AMLO10TA7 PO; -BISA10S PR; +CHOL200016 PO; +CLOT12CR TP; +DIME532L3 TP; +FAMO20 PO; +GABA-1201 PO; -GABA-531 PO; +OLAN5TAB52 PO; -PERCT PO; +SENN-31 PO; -UREA198C TP
[2022-12-02 22:26] VITALS: BP 160/94
== END 2022-12-03 00:57 | disposition home or self-care (01) ==
LOC: EMS 19:25
DX: M79.673 Pain in unspecified foot (principal); Z48.01 Encounter for change or removal of surgical wound dressing
CPT/HCPCS: 99283; Z7502